=== PATIENT | male | born 1990 | race Two or more races ===

== ENCOUNTER 2023-03-08 20:51 | Emergency (ER) | payer OTHER, BC ==
[2023-03-08] MEDS ORDERED: Fluorescein 1 MG Ophth Strip ONE (22:16)
[2023-03-08] MEDS ORDERED: Proparacaine 0.5% Ophth Soln 15 ML Bottle ONE (22:17)
[2023-03-08] MEDS ORDERED: Erythromycin Base 0.5% Ophth Oint 1 GM Tube EYELF ONE (22:33)
[2023-03-08] MEDS ORDERED: Diphtheria,Pertussis(Acell),Tetanus Vaccine 0.5 ML Syringe IM ONE (22:38)
== END 2023-03-08 22:53 | disposition home or self-care (01) ==
LOC: JD.ED 20:51
DX: T15.12XA Foreign body in conjunctival sac, left eye, initial encounter (principal); Z23 Encounter for immunization
CPT/HCPCS: 65222; 90471; 90715; 99283; A9270; J3490

== ENCOUNTER 2023-08-21 10:38 | Emergency (ER) | payer BC ==
[2023-08-21] MEDS: Albuterol/Ipratropium 3.0-0.5 MG/3 ML Neb Soln NEB ONE (11:08)
[2023-08-21 11:16] LABS: BASOPHILS PERCENT AUTO 0.6 % (0.0-1.0); EOSINOPHILS ABSOLUTE AUTO 0.7 K/mm3 (0.0-0.4); EOSINOPHILS PERCENT AUTO 11.2 % (0.0-6.0); HEMATOCRIT 44.9 % (42.0-52.0); HEMOGLOBIN 15.2 gm/dl (14.0-18.0); IMMATURE GRAN ABSOLUTE AUTO 0.02 K/mm3 (0.00-0.05); IMMATURE GRAN PERCENT AUTO 0.3 % (0.0-0.4); LYMPHOCYTES ABSOLUTE AUTO 1.4 K/mm3 (1.0-4.8); LYMPHOCYTES PERCENT AUTO 22.2 % (24.0-44.0); MEAN CORPUSCULAR HEMOGLOBIN 30.1 pg (28.0-32.0); MEAN CORPUSCULAR HGB CONC 33.9 g/dl (32.0-36.0); MEAN CORPUSCULAR VOLUME 88.9 fl (83.0-99.0); MEAN PLATELET VOLUME 9.9 fl (9.4-12.4); MONOCYTES ABSOLUTE AUTO 0.5 K/mm3 (0.0-0.8); MONOCYTES PERCENT AUTO 7.8 % (0.0-8.0); NEUTROPHILS ABSOLUTE AUTO 3.7 K/mm3 (1.8-7.7); NEUTROPHILS PERCENT AUTO 57.9 % (41.0-71.0); PLATELET COUNT,PLT 241 K/mm3 (150-400); RED BLOOD CELL COUNT 5.05 M/mm3 (4.52-5.90); WHITE BLOOD CELL COUNT,WBC 6.44 K/mm3 (3.9-11.3)
[2023-08-21] MEDS: Sodium Chloride 0.9% 1,000 ML IV ONE (11:31)
[2023-08-21 11:45] LABS: INR 0.96; PROTHROMBIN TIME 10.3 SECONDS (9.7-12.0)
[2023-08-21 11:46] LABS: D-DIMER QUANTITATIVE 0.24 mg/L (0.19-0.50)
[2023-08-21 11:47] LABS: PTT,PARTIAL THROMBOPLSTIN TIME 28.6 SECONDS (21.7-31.4)
[2023-08-21 11:49] LABS: A/G RATIO 1.2 (1-2); ALANINE AMINOTRANSFERASE,ALT 37 U/L (16-63); ALBUMIN 3.9 g/dl (3.4-5.0); ALKALINE PHOSPHATASE 96 U/L (46-116); ANION GAP 12.8 (5-15); ASPARTATE AMNIOTRANSFERASE,AST 18 U/L (15-37); BILIRUBIN TOTAL 0.8 mg/dL (0.2-1.0); BLOOD UREA NITROGEN,BUN 12 mg/dL (7-18); CALCIUM 9.3 mg/dL (8.5-10.1); CARBON DIOXIDE,CO2 26 mEq/L (21-32); CHLORIDE,CL 104 mEq/L (98-107); EST CRCL DRUG DOSING (CG) 99.15 mL/min; ESTIMATED GFR 103 mL/min (>60); GLUCOSE RANDOM 88 mg/dL (70-99); POTASSIUM,K 3.8 mEq/L (3.5-5.1); PROTEIN TOTAL,TP 7.3 g/dl (6.4-8.2); SODIUM,NA 139 mEq/L (136-145)
[2023-08-21 11:50] LABS: TROPONIN I HIGH SENSITIVITY < 4 pg/mL (<=76)
[2023-08-21] MEDS: Albuterol 6.7 GM Inhaler INH ONE (12:28)
[2023-08-21 12:30] LABS: CORONAVIRUS COVID-19 NAA NEGATIVE (NEGATIVE); INFLUENZA A NAA NEGATIVE (NEGATIVE); RESPIRATORY SYNCYTIAL VIR NAA NEGATIVE (NEGATIVE)
[2023-08-21] MEDS: predniSONE 20 MG Tab PO ONE (12:42)
== END 2023-08-21 12:43 | disposition home or self-care (01) ==
LOC: JD.ED 10:38
DX: R06.2 Wheezing (principal)
CPT/HCPCS: 0241U; 36415; 71045; 80053; 83880; 84484; 85025; 85379; 85610; 85730; 93005; 94640; 96360; 99285; A9270; J7030; J7512; J7620-GY